=== PATIENT | female | born 1985 | race Caucasian/White ===

== ENCOUNTER → 2016-04-09 | Outpatient (CLI) | payer OTHER ==
[~2016-04-09] MED LIST: AMOX1TAB63 PO; ATOR10TA PO; AZIT250T PO; BENZ-13 PO; BUTA1CAP39 PO; CETI10CA PO; HYDR-2854 PO; L-NO1TBD PO; METF500T4 PO; PRD20T PO; RT-ALBUINH IH
--- NOTE | 2016-04-09 13:34 | Diagnostic Imaging Report ---
First trimester OB ultrasound. INDICATION: Dating. FINDINGS: There is a normal-appearing single intrauterine . An embryo is seen with cardiac activity at 172 beats per minute. The crown-rump length is at 12 weeks and 5 days. BATSHEVA is 10/17/16. The ovaries are obscured by bowel gas. IMPRESSION: Live single intrauterine . Dictated by: Dictated on workstation # [id number]
== END ==
LOC: RAD 09:35
PROVIDERS: ATTEND Family Medicine
DX: Z36 Encounter for antenatal screening of mother (principal); Z3A.12 12 weeks gestation of pregnancy
CPT/HCPCS: 76801

== ENCOUNTER 2016-04-16 14:37 | Emergency (ER) | payer OTHER ==
[~2016-04-16] VITALS: Ht 160 cm; Wt 108.0 kg
[~2016-04-16 14:37] MED LIST changes: -RT-ALBUINH IH
[2016-04-16] MEDS ORDERED: RT-ALBUINH IH (14:46)
[2016-04-16 14:58] LABS: BASOPHILS % (AUTO) 0 % (0-10); EOSINOPHILS # (AUTO) 0.1 10^3/uL (0.0-0.3); EOSINOPHILS % (AUTO) 1 % (0-10); LYMPHOCYTES # (AUTO) 2.2 X 10^3 (1.0-4.0); LYMPHOCYTES % (AUTO) 19 % (12-44); MEAN CORPUSCULAR HEMOGLOBIN 30 PG (25-34); MEAN CORPUSCULAR HGB CONC 35 G/DL (32-36); MEAN CORPUSCULAR VOLUME 86 FL (80-99); MEAN PLATELET VOLUME 10.2 FL (7.4-10.4); MONOCYTES # (AUTO) 0.9 X 10^3 (0.0-1.0); MONOCYTES % (AUTO) 8 % (0-12); NEUTROPHILS # (AUTO) 8.4 X 10^3 (1.8-7.8); NEUTROPHILS % (AUTO) 72 % (42-75); PLATELET COUNT 288 10^3/uL (130-400); RED BLOOD COUNT 4.61 10^6/uL (4.35-5.85); RED CELL DISTRIBUTION WIDTH 12.1 % (10.0-14.5); WHITE BLOOD COUNT 11.6 10^3/uL (4.3-11.0)
[2016-04-16 15:02] LABS: BILIRUBIN,URINE NEGATIVE (NEGATIVE); KETONES,URINE 2+ (NEGATIVE); LEUKOCYTE ESTERASE ,URINE NEGATIVE (NEGATIVE); NITRITE,URINE NEGATIVE (NEGATIVE); PH,URINE 5 (5-9); PROTEIN,URINE 4+ (NEGATIVE); UROBILINOGEN,URINE NORMAL (NORMAL)
[2016-04-16 15:15] LABS: SQUAMOUS EPITHELIAL CELL,UR RARE /HPF
--- NOTE | 2016-04-16 15:31 | ED GU-Female ---
General Chief Complaint: -Female Stated Complaint: VAG BLEEDING/CRAMPING 13 WKS PREG Nursing Triage Note: TO ROOM 09 VIA AMBULANCE. PT STARTED HAVING ABD CRAMPING AT [facility] AND NOTICED BLOOD IN THE TOILET. Nursing Sepsis Screen: No Definite Risk Source: patient Exam Limitations: no limitations History of Present Illness Time seen by provider: 14:40 Initial Comments This 31-year-old 6 para-4 presents to the emergency room with fairly sudden onset of lower back pain, pelvic cramping, and vaginal bleeding. She had been walking around a local store when symptoms started. She went to the bathroom and noticed the bleeding. She then activated EMS. She is about 13 weeks gestational age. She had a recent ultrasound demonstrating a viable . EMS reports blood loss was around 50 mL. She denies any pain at the time of my evaluation. She is a patient of Dr. Villa and has already had her pelvic exam at his office. Allergies and Home Medications Allergies Coded Allergies: No Known Drug Allergies (Verified , 04/11/08) Home Medications Albuterol Sulfate 6.7 Gm Hfa.aer.ad 2 PUFF IH Q6H PRN PRN SHORTNESS OF BREATH ( Reported) Constitutional: no symptoms reported EENTM: no symptoms reported Respiratory: no symptoms reported Cardiovascular: no symptoms reported Gastrointestinal: see HPI Genitourinary: see HPI Expected Date of Delivery: Oct 20, 2016 Musculoskeletal: see HPI Skin: no symptoms reported Psychiatric/Neurological: No Symptoms Reported Endocrine: No Symptoms Reported Past Deifxbe-Fqfydt-Vxylte Hx Patient Social History Alcohol Use: Rarely Uses Recreational Drug Use: No Smoking Status: Never a Smoker Recent Foreign Travel: No Contact w/Someone Who Travel: No Recent Infectious Disease Expo: No Recent Hopitalizations: No Surgeries HX Surgeries: Yes (oral surgery age 6) Respiratory Hx Respiratory Disorders: Yes Respiratory Disorders: Asthma Cardiovascular Hx Cardiac Disorders: Yes Cardiac Disorders: High Cholesterol Neurological Hx Neurological Disorders: No Reproductive System : Yes Hx : 6 Hx Para: 4 Hx Total # of Abortions (Spona: 1 Hx Reproductive Disorders: No Genitourinary Hx Genitourinary Disorders: No Gastrointestinal Hx Gastrointestinal Disorders: No Musculoskeletal Hx Musculoskeletal Disorders: No Endocrine Hx Endocrine Disorders: No HEENT HX ENT Disorders: No Cancer Hx Cancer: No Psychosocial Hx Psychiatric Problems: Yes Behavioral Health Disorders: Anxiety Blood Transfusions Hx Blood Disorders: No Family Medical History Significant Family History: No Pertinent Family Hx Physical Exam Vital Signs Vital Sign - Last 12Hours 04/16/16 14:41 Temp 96.5 Pulse 104 Resp 16 B/P 121/72 Pulse Ox 100 O2 Delivery Room Air Capillary Refill : Less Than 3 Seconds General Appearance: WD/WN no apparent distress HEENT: PERRL/EOMI normal ENT inspection pharynx normal Neck: normal inspection Cardiovascular: regular rate, rhythm no edema no murmur Respiratory: lungs clear normal breath sounds no respiratory distress no accessory muscle use Gastrointestinal: normal bowel sounds soft tenderness (mild across the lower abdomen) Back: normal inspection Extremities: normal inspection no pedal edema Neurologic/Psychiatric: network relay tester II-XII nml as tested no motor/sensory deficits alert normal mood/affect oriented x 3 Skin: normal color warm/dry Progress/Results/Core Measures Results/Orders Lab Results Laboratory Tests Test 04/16/16 14:45 04/16/16 14:55 Range/Units Basophils # (Auto) 0.0 0.0-0.1 10^3/uL Basophils (%) (Auto) 0 0-10 % Eosinophils # (Auto) 0.1 0.0-0.3 10^3/uL Eosinophils (%) (Auto) 1 0-10 % Hematocrit 40 35-52 % Hemoglobin 14.0 11.5-16.0 G/DL Human Chorionic Gonadotropin, Quant 15994 H <5 MIU/ML Lymphocytes # (Auto) 2.2 1.0-4.0 X 10^3 Lymphocytes (%) (Auto) 19 12-44 % Mean Corpuscular Hemoglobin 30 25-34 PG Mean Corpuscular Hemoglobin Concent 35 32-36 G/DL Mean Corpuscular Volume 86 80-99 FL Mean Platelet Volume 10.2 7.4-10.4 FL Monocytes # (Auto) 0.9 0.0-1.0 X 10^3 Monocytes (%) (Auto) 8 0-12 % Neutrophils # (Auto) 8.4 H 1.8-7.8 X 10^3 Neutrophils (%) (Auto) 72 42-75 % Platelet Count 288 130-400 10^3/uL Red Blood Count 4.61 4.35-5.85 10^6/uL Red Cell Distribution Width 12.1 10.0-14.5 % White Blood Count 11.6 H 4.3-11.0 10^3/uL Urine Bacteria TRACE /HPF Urine Bilirubin NEGATIVE NEGATIVE Urine Casts NONE /LPF Urine Clarity BLOODY H Urine Color RED H Urine Crystals NONE /LPF Urine Culture Indicated NO Urine Glucose (UA) NEGATIVE NEGATIVE Urine Ketones 2+ H NEGATIVE Urine Leukocyte Esterase NEGATIVE NEGATIVE Urine Mucus NEGATIVE /LPF Urine Nitrite NEGATIVE NEGATIVE Urine Protein 4+ NEGATIVE Urine RBC TNTC H /HPF Urine RBC (Auto) 5+ H NEGATIVE Urine Specific [place] 1.025 H 1.016-1.022 Urine Squamous Epithelial Cells RARE /HPF Urine Urobilinogen NORMAL NORMAL MG/DL Urine WBC NONE /HPF Urine pH 5 5-9 My Orders Orders-ANNIA YAÑEZ MD Cbc With Automated Diff (04/16/16 14:45) Hcg,Quantitative (04/16/16 14:45) Ua Culture If Indicated (04/16/16 14:45) Us Ob Single Fetus<14 [id number] (04/16/16 14:48) Vital Signs/I&O Vital Sign - Last 12Hours 04/16/16 14:41 Temp 96.5 Pulse 104 Resp 16 B/P 121/72 Pulse Ox 100 O2 Delivery Room Air Blood Pressure Mean: 88 Progress Note : Progress Note Ultrasound findings discussed with Dr. Villa and the patient. She will follow- up in the outpatient clinic. Activity restrictions discussed. Diagnostic Imaging Diagonstic Imaging: Ultrasound Plain Films/CT/US/NM/MRI: pelvis Comments Ultrasound discussed with the research instrumentation technician and radiologist. There is a subchorionic bleed with a viable . Departure Impression Impression: Primary Impression: Subchorionic bleed Qualified Code: O41.8X10 - Other specified disorders of amniotic fluid and membranes, first trimester, not applicable or unspecified Additional Impression: Vaginal bleeding in Qualified Code: O46.91 - Antepartum hemorrhage, unspecified, first trimester Disposition: 01 HOME, SELF-CARE Condition: Stable Departure-Patient Inst. Decision time for Depature: 15:45 Referrals: ANA WILSON DO (PCP/Family) Primary Care Physician Patient Instructions: NO INSTRUCTIONS GIVEN Add. Discharge Instructions: No strenuous activity or heavy lifting until cleared by your physician. No sexual activity or anything intravaginally until cleared by your physician. Return to care if symptoms worsen. Follow-up with Dr. Villa within the next1-2 weeks. All discharge instructions reviewed with patient and/or family. Voiced understanding. ANNIA YAÑEZ MD Apr 16, 2016 15:31
--- NOTE | 2016-04-16 15:55 | Diagnostic Imaging Report ---
EXAMINATION: OB ultrasound. INDICATION: Bleeding. FINDINGS: The recent OB ultrasound exam performed on 04/09/2016 noted a single live intrauterine of approximately 12 weeks 5 days, +/-1 week. On this exam, the fetus is again visualized. heart motion was noted, and a rate of 156 BPM was recorded. The crown-rump length suggests that estimated gestational age is 13 weeks 4 days, +/-1 week. This would correspond to the findings on the previous exam. There are no obvious abnormalities identified. The amniotic fluid volume is within normal limits. The placenta is anterior, and there is a small hypoechoic area interposed between the placenta and the myometrium. This may be related to a subchorionic hemorrhage. There is no active bleeding evident, and there is no sign of an abruption. There is no evidence for a previa either. IMPRESSION: 1. There is a single live fetus of approximately 13 weeks 5 days gestation, +/-1 week. The EDC remains October 17, 2016. 2. No obvious abnormality is identified. 3. The small fluid collection interposed between the placenta and the myometrium may be related to a subchronic hemorrhage. There is no evidence for active bleeding. There is no sign of an abruption or previa either. 4. These results were discussed with Dr. Almas Villa and Dr. Ulysses Eldridge. Dictated by: Dictated on workstation # [id number]
[2016-04-16 15:56] VITALS: BP 131/85
== END 2016-04-16 15:56 | disposition home or self-care (01) ==
LOC: EDUNIT# 14:37 → ER 14:39
DX: O41.8X10 Other specified disorders of amniotic fluid and membranes, first trimester, not applicable or unspecified (principal); Z3A.13 13 weeks gestation of pregnancy
CPT/HCPCS: 36415; 76801; 81000; 84702; 85025

== ENCOUNTER → 2016-06-04 | Outpatient (CLI) | payer OTHER ==
[~2016-06-04] MED LIST changes: +RT-ALBUINH IH
--- NOTE | 2016-06-04 13:48 | Diagnostic Imaging Report ---
INDICATION: survey. COMPARISON: 04/16/2016. DISCUSSION: Transabdominal sonographic evaluation of the gravid uterus was performed. Single live intrauterine at 20 weeks 6 days by sonographic measurements. Appropriate interval growth. EDC by today's ultrasound is 10/16/2016. presentation is transverse. Grade 1 placenta is located posteriorly and is low lying in position. heart rate measures 143 beats per minute. There was poor visualization of the bladder and cord insertion due to positioning. There is good visualization of the kidneys, stomach, brain, four-chamber heart, three-vessel cord, spine, and extremities. Recommend short-term sonographic followup. Biparietal diameter measures 4.7 cm. Head circumference measures 17.6 cm. Abdominal circumference measures 16.4 cm. Femur length measures 3.5 cm. Estimated weight is 399 g. IMPRESSION: 1. Single live intrauterine at 20 weeks 6 days by sonographic measurements. 2. Poor visualization of the bladder and cord insertion due to positioning. Recommend short-term sonographic followup. The remainder of the anatomical survey appeared within normal limits. 3. Low-lying placenta. Dictated by: Dictated on workstation # [id number]
== END ==
LOC: RAD 09:21
PROVIDERS: ATTEND Family Medicine
DX: Z36 Encounter for antenatal screening of mother (principal)
CPT/HCPCS: 76805

== ENCOUNTER → 2016-06-25 | Outpatient (CLI) | payer OTHER ==
--- NOTE | 2016-06-25 12:18 | Diagnostic Imaging Report ---
EXAMINATION: OB ultrasound. INDICATION: Incomplete survey. Reevaluate the bladder and cord insertion. FINDINGS: The heart rate is 134 BPM. The placenta is posterior. No placenta previa. The urinary bladder and cord insertion are better seen compared to the prior exam with no definite abnormality. IMPRESSION: Completed survey with no definite abnormality. Dictated by: Dictated on workstation # [id number]
== END ==
LOC: RAD 10:56
PROVIDERS: ATTEND Family Medicine
DX: Z36 Encounter for antenatal screening of mother (principal)
CPT/HCPCS: 76816

== ENCOUNTER 2016-10-09 14:12 | Outpatient (CLI) | payer OTHER, MEDICAID ==
[~2016-10-09] VITALS: Ht 160 cm; Wt 107.5 kg
[2016-10-09 14:30] VITALS: BP 123/71
[2016-10-09] MEDS ORDERED: PREN-37 PO (15:42)
--- NOTE | 2016-10-12 11:13 | Physician Query-Final Dx ---
FRANDY JANE 10/12/16 1113: Clinic Account Progress/Dx Physician Query: Please give diagnosis Date of Service Oct 09, 2016 at 14:12 MARY GRANT MD 11/02/16 1315: Clinic Account Progress/Dx DIAGNOSIS: Diagnosis Abdominal pain FRANDY JANE Oct 12, 2016 11:13 MARY GRANT MD Nov 02, 2016 13:15
[2016-10-20] MEDS ORDERED: IBUP-1773 PO (08:01)
== END 2016-10-09 15:50 | disposition home or self-care (01) ==
LOC: WSo 14:12 → LDRP 14:13 → WSo 15:50
PROVIDERS: ATTEND Family Medicine
DX: O26.90 Pregnancy related conditions, unspecified, unspecified trimester (principal); R10.9 Unspecified abdominal pain
CPT/HCPCS: 99213

== ENCOUNTER 2016-10-19 05:37 | Inpatient (IN) | payer OTHER, MEDICAID ==
[~2016-10-19] VITALS: Ht 160 cm; Wt 107.7 kg
[2016-10-19] VITALS (33 sets, daily range): BP systolic 93–134; BP diastolic 50–82
[~2016-10-19 05:37] MED LIST changes: +PREN-37 PO
[2016-10-19] MEDS ORDERED: MINERAL OIL CONCENTRATE 99.9% 15 ML UDC TOP PRN (06:00)
[2016-10-19] MEDS ORDERED: CATHETER FLUSH 10 ML SYR IV SCH ×2 (06:00→22:00)
[2016-10-19] MEDS: D5 LR IV SOLUTION 1,000 ML IV SCH ×2 (06:10→13:03)
[2016-10-19 06:32] LABS: BASOPHILS % (AUTO) 0 % (0-10); EOSINOPHILS # (AUTO) 0.2 10^3/uL (0.0-0.3); EOSINOPHILS % (AUTO) 2 % (0-10); LYMPHOCYTES # (AUTO) 1.5 X 10^3 (1.0-4.0); LYMPHOCYTES % (AUTO) 15 % (12-44); MEAN CORPUSCULAR HEMOGLOBIN 26 PG (25-34); MEAN CORPUSCULAR HGB CONC 33 G/DL (32-36); MEAN CORPUSCULAR VOLUME 80 FL (80-99); MEAN PLATELET VOLUME 10.9 FL (7.4-10.4); MONOCYTES # (AUTO) 1.1 X 10^3 (0.0-1.0); MONOCYTES % (AUTO) 11 % (0-12); NEUTROPHILS # (AUTO) 7.4 X 10^3 (1.8-7.8); NEUTROPHILS % (AUTO) 73 % (42-75); PLATELET COUNT 296 10^3/uL (130-400); RED BLOOD COUNT 4.59 10^6/uL (4.35-5.85); RED CELL DISTRIBUTION WIDTH 14.1 % (10.0-14.5); WHITE BLOOD COUNT 10.2 10^3/uL (4.3-11.0)
[2016-10-19] MEDS ORDERED: OXYTOCIN/NORMAL SALINE 500 ML IV SCH ×2 (07:34→15:25)
--- NOTE | 2016-10-19 07:34 | History & Physical-OB ---
OB - Chief Complaint & HPI Date/Time Date of Admission: Date of Admission: Oct 19, 2016 at 05:37 Time Seen by Provider: 07:20 Chief Complaint/History Hx : 5 Hx Para: 4 Expected Date of Delivery: Oct 20, 2016 Gestational Age in Weeks: 39 Gestational Age in Days: 6 Admission Nurse Assessment Rev: Yes History of Labs GBS negative Allergies and Home Medications Allergies Coded Allergies: No Known Drug Allergies (Verified , 04/11/08) Home Medications Albuterol Sulfate 6.7 Gm Hfa.aer.ad, 2 PUFF IH Q6H PRN for SHORTNESS OF BREATH, (Reported) Vit/Iron Fumarate/FA 1 Each Tablet, 1 EACH PO DAILY, (Reported) OB - History Hx of Present Care: Yes Ultrasounds: Normal mid trimester US Obstetrical Complications: None Medical Complications: None Obstetrical History Hx Termination: No Hx Multiple Gestation: No Hx Stillbirth: No Hx Complication: No Hx Induced Hypertens: No Hx Maternal Gestational Diabet: No Delivery History Hx Dystocia: No Hx Large For Gestational Age I: Yes Hx Small for Gestational Age I: No Hx Section: No Hx Vaginal Delivery Post C-Sec: No Hx Blood Disorders: No Adverse Rxn to Tranfusion: No Patient Past Medical History no chronic medical problems Social History/Family History Recent Infectious Disease Expo: No Alcohol Use: Denies Use Recreational Drug Use: No Immunizations Hepatitis A: Yes Hepatitis B: Yes OB - Admission Exam Physical Exam Date Seen by Provider: Oct 19, 2016 Time Seen by Provider: 07:20 Vitals: Vital Signs 10/19/16 06:02 Temp 97.9 Pulse 105 Resp 18 B/P (MAP) 133/60 O2 Delivery Room Air HEENT: Moist Membranes Heart: Rhythm Normal Lungs: Clear Abdomen: Gravid Cervical Dilatation: 3cm Effacement: 50% Station: -3 Membranes: Intact Heart Rate: 140's Accelerations: Accelerations Present Decelerations: No Decelerations Short Term Variability: Present Mcfp Variability: Average (6-25) Contractions on Admission: >10 Minutes Apart Wolfe Scoring Tool (Modified) Dilation (cm): 3-4cm (2) Effacement (%): 31-51% (1) Descent/Station: -3 (0) Cervix Consistency: Medium(1) Cervix Position: Middle/Mid-Position (1) Wolfe Score: 9 Labs Laboratory Tests Test 10/19/16 06:10 Range/Units White Blood Count 10.2 4.3-11.0 10^3/uL Red Blood Count 4.59 4.35-5.85 10^6/uL Hemoglobin 11.9 11.5-16.0 G/DL Hematocrit 37 35-52 % Mean Corpuscular Volume 80 80-99 FL Mean Corpuscular Hemoglobin 26 25-34 PG Mean Corpuscular Hemoglobin Concent 33 32-36 G/DL Red Cell Distribution Width 14.1 10.0-14.5 % Platelet Count 296 130-400 10^3/uL Mean Platelet Volume 10.9 H 7.4-10.4 FL Neutrophils (%) (Auto) 73 42-75 % Lymphocytes (%) (Auto) 15 12-44 % Monocytes (%) (Auto) 11 0-12 % Eosinophils (%) (Auto) 2 0-10 % Basophils (%) (Auto) 0 0-10 % Neutrophils # (Auto) 7.4 1.8-7.8 X 10^3 Lymphocytes # (Auto) 1.5 1.0-4.0 X 10^3 Monocytes # (Auto) 1.1 H 0.0-1.0 X 10^3 Eosinophils # (Auto) 0.2 0.0-0.3 10^3/uL Basophils # (Auto) 0.0 0.0-0.1 10^3/uL OB - Assessment/Plan/Diagnosis Assessment Assessment: induction of labor (at 39w6d gestation) Plan Induction Method: per Pitocin Protocol DINORA CARRION MD Oct 19, 2016 07:34
[2016-10-19 07:40] LABS: BILIRUBIN,URINE NEGATIVE (NEGATIVE); KETONES,URINE NEGATIVE (NEGATIVE); LEUKOCYTE ESTERASE ,URINE 3+ (NEGATIVE); NITRITE,URINE NEGATIVE (NEGATIVE); PH,URINE 7 (5-9); PROTEIN,URINE NEGATIVE (NEGATIVE); UROBILINOGEN,URINE NORMAL (NORMAL)
[2016-10-19] MEDS ORDERED: BUTORPHANOL INJ 2 MG/ML (STADOL) VIAL IV PRN (07:45)
[2016-10-19] MEDS ORDERED: MEPIVACAINE (CARBOCAINE) 2% 50 ML VIAL ONE ×2 (11:37→13:20)
--- OUTSIDE RECORDS SUMMARY | 2016-10-19 12:41 | XMS REPORT ---
Author RICH Yeager Organization [employer] Address Unknown Phone Unavailable Care Team Providers Care Machine Coil Assembler Name Role Phone RICH HANKS CP Unavailable Allergies, Adverse Reactions, Alerts Substance Reaction Event Type N.K.D.A. Info Not Available Non Drug Allergy Problems Problem Type Condition Code Onset Dates Condition Status Problem Adjustment disorder with anxiety 309.24 Active Assessment Sinusitis J32.9 Active Problem Sinusitis J32.9 Active Medications Medication Code System Code Instructions Start Date End Date Status Dosage Amoxicillin [facility] [address]-10 500 MG Orally 3 times a day Dec 17, 2014 Dec 27, 2014 1 tablet PredniSONE [facility] [address]-54 10 MG Orally 2 times a day Dec 17, 2014 Dec 22, 2014 1 tablet with food or milk Seasonique [facility] [address]-07 0.15 mg-30 mcg (84)/10 mcg (7) Orally Once a day August 24, 2013 take 1 tablet by oral route once daily Procedures Procedure Coding System Code Date Office Visit, Est Pt., Level 3 CPT-4 48046 Dec 17, 2014 Vital Signs Date/Time: Dec 17, 2014 Temperature 97.8 F Weight 240.1 lbs Height 63 in BMI 42.53 Index Blood Pressure Diastolic 74 mmHg Blood Pressure Systolic 120 mmHg Cardiac Monitoring Heart Rate 84 bpm Results No Known Results Summary Purpose [employer] Submission
--- OUTSIDE RECORDS SUMMARY | 2016-10-19 12:41 | XMS REPORT ---
Author RICH Yeager [facility] [employer] Address Unknown Phone Unavailable Care Team Providers Care Vallez Filter Operator Name Role Phone RICH HANKS Unavailable Allergies No Known Allergies Problems Problem Type Condition Code Onset Dates Condition Status Problem Asthma J45.909 Active Problem Sinusitis J32.9 Active Problem Wellness examination Z01.89 Active Problem Adjustment disorder with anxiety 309.24 Active Assessment Hyperlipemia E78.5 Active Medications Medication Code System Code Instructions Start Date End Date Status Dosage Atorvastatin Calcium [facility] [address]-84 20 MG Orally Once a day Dec 27, 2014 1 tablet Results No Known Results Summary Purpose [employer] Submission
--- OUTSIDE RECORDS SUMMARY | 2016-10-19 12:41 | XMS REPORT ---
Author RICH Yeager Organization [employer] Address Unknown Phone Unavailable Care Team Providers Care Drafter Automotive Design Layout Name Role Phone RICH HANKS CP Unavailable Allergies, Adverse Reactions, Alerts Substance Reaction Event Type N.K.D.A. Info Not Available Non Drug Allergy Problems Problem Type Condition Code Onset Dates Condition Status Problem Asthma J45.909 Active Problem Sinusitis J32.9 Active Problem Wellness examination Z01.89 Active Assessment Asthma J45.909 Active Problem Adjustment disorder with anxiety 309.24 Active Assessment Allergic headache G44.89 Active Medications Medication Code System Code Instructions Start Date End Date Status Dosage Atorvastatin Calcium [facility] [address]-79 20 MG Orally Once a day Dec 27, 2014 1 tablet Seasonique [facility] [address]-75 0.15 mg-30 mcg (84)/10 mcg (7) Orally Once a day August 24, 2013 take 1 tablet by oral route once daily Albuterol Sulfate HFA [facility] [address]-36 108 (90 Base) MCG/ACT Inhalation every 4 hrs Dec 26, 2014 2 puffs as needed Excedrin Migraine [facility] [address]-55 250-250-65 MG Orally every 6 hrs Jan 2 tablets as needed Procedures Procedure Coding System Code Date DEXAMETHASONE 4MG/ML (PER 1 MG) CPT-4 J1100 Feb 07, 2015 THER/PROPH/DIAG INJ, SC/IM CPT-4 94133 Feb 07, 2015 Office Visit, Est Pt., Level 4 CPT-4 84326 Feb 07, 2015 DEPO MEDROL 40 MG/ML CPT-4 J1030 Feb 07, 2015 Vital Signs Date/Time: Feb 07, 2015 Temperature 97.3 F Weight 241.3 lbs Height 63 in BMI 42.74 Index Blood Pressure Diastolic 88 mmHg Blood Pressure Systolic 118 mmHg Cardiac Monitoring Heart Rate 100 bpm Results No Known Results Summary Purpose [employer] Submission
--- OUTSIDE RECORDS SUMMARY | 2016-10-19 12:42 | XMS REPORT ---
Author RICH Yeager Organization [employer] Address Unknown Phone Unavailable Care Team Providers Care Machine Tool Electrician Name Role Phone RICH HANKS CP Unavailable Allergies No Known Allergies Problems Problem Type Condition Code Onset Dates Condition Status Problem Obesity E66.9 Active Problem Wellness examination Z01.89 Active Problem Hypercholesteremia E78.0 Active Problem Adjustment disorder with anxiety 309.24 Active Problem Asthma J45.909 Active Problem Sinusitis J32.9 Active Medications Medication Code System Code Instructions Start Date End Date Status Dosage Metformin HCl [facility] [address]-11 500 MG Orally 2 times a day 1 tablet with meals Results No Known Results Summary Purpose [employer] Submission
--- OUTSIDE RECORDS SUMMARY | 2016-10-19 12:42 | XMS REPORT ---
Author RICH Yeager Organization [employer] Address Unknown Phone Unavailable Care Team Providers Care Employee Welfare Manager Name Role Phone RICH HANKS CP Unavailable Allergies, Adverse Reactions, Alerts Substance Reaction Event Type N.K.D.A. Info Not Available Non Drug Allergy Problems Problem Type Condition Code Onset Dates Condition Status Problem Asthma J45.909 Active Problem Sinusitis J32.9 Active Problem Wellness examination Z01.89 Active Assessment Asthma J45.909 Active Problem Adjustment disorder with anxiety 309.24 Active Assessment Wellness examination Z01.89 Active Medications Medication Code System Code Instructions Start Date End Date Status Dosage Albuterol Sulfate HFA [facility] [address]-75 108 (90 Base) MCG/ACT Inhalation every 4 hrs Dec 26, 2014 2 puffs as needed Seasonique [facility] [address]-37 0.15 mg-30 mcg (84)/10 mcg (7) Orally Once a day August 24, 2013 take 1 tablet by oral route once daily Procedures Procedure Coding System Code Date COMPREHEN METABOLIC PANEL CPT-4 11711 Dec 26, 2014 ASSAY THYROID STIM HORMONE CPT-4 67006 Dec 26, 2014 COMPLETE CBC W/AUTO DIFF WBC CPT-4 65118 Dec 26, 2014 VENIPUNCT, ROUTINE* CPT-4 47912 Dec 26, 2014 LIPID PANEL CPT-4 84652 Dec 26, 2014 Office Visit, Est Pt., Level 4 CPT-4 01956 Dec 26, 2014 Vital Signs Date/Time: Dec 26, 2014 Temperature 98.0 F Weight 242 lbs Height 63 in BMI 42.86 Index Blood Pressure Diastolic 70 mmHg Blood Pressure Systolic 118 mmHg Cardiac Monitoring Heart Rate 88 bpm Results Name Result Date Reference Range Unit Abnormality Flag ROUTINE VENIPUNCTURE TSH Summary Purpose e[employer] Submission
--- NOTE | 2016-10-19 15:29 | OB Labor & Delivery Record ---
L&D History Date of Service Date of Service: Oct 19, 2016 History Expected Date of Delivery: Oct 20, 2016 Gestational Age in Weeks: 39 Hx : 5 Hx Para: 4 Complications Events: Routine care Operative Indications (Cesarea: N/A-Vaginal Delivery Intrapartal Events: None L&D Stage1 Stage One Onset of Labor - Date: Oct 19, 2016 Onset of Labor - Time: 07:15 Monitors and Tracing Monitor Mode: Internal Heart Rate: 145 Monitor Accelerations: Uniform Monitor Decelerations: Variable Station: -3 Hot Plate Plywood Press Operator Variability: Average (6-10) Short Term Variability: Present Presentation: Vertex Vital Signs VS - Last 72 Hours, by Label 10/19/16 10/19/16 10/19/16 10/19/16 06:02 07:30 08:00 08:15 Temp 97.9 97.2 Pulse 105 91 93 Resp 18 20 20 20 B/P (MAP) 133/60 132/63 124/63 O2 Delivery Room Air Non Rebreather Room Air Room Air O2 Flow Rate 15.00 10/19/16 10/19/16 10/19/16 10/19/16 08:30 08:45 09:00 09:15 Pulse 94 92 91 91 Resp 20 20 20 20 B/P (MAP) 134/69 123/58 115/58 102/61 O2 Delivery Room Air Room Air Room Air Room Air 10/19/16 09:30 Pulse 90 Resp 20 B/P (MAP) 126/60 O2 Delivery Room Air Signs of Distress by FHT Signs of Distress no Rupture of Membranes Spontaneous Ruture of Membrane: No Amniotic Membrane Rupture Time: 0720 Amniotic Membrane Fluid Desc.: Clear L&D Stage2 Stage Two Stage II Date: Oct 19, 2016 Stage II Time: 13:50 Monitors and Tracing Monitor Mode: Internal Heart Rate: 145 Monitor Accelerations: Uniform Monitor Decelerations: Variable Hot Plate Plywood Press Operator Variability: Average (6-10) Short Term Variability: Present Position: Left Occiput Anterior Presentation: Vertex Signs of Distress by FHT Signs of Distress no Cord Descript/Complications Cord Vessel Description: 3 Vessels Delivery Type Delivery Method: Spontaneous Vaginal Anterior Shoulder: Left Episiotomy/Perineal Laceration Episiotomy Description: Perineal Extension/lac, 1st degree Sutures Used: Vicryl Condition of Infant Delivery 1 minute Comment: 9 5 minute Comment: 9 Condition of Condition of Infant: Living Exam: No Observed Abnormalities Resuscitation Resuscitation: N/A - Spontaneous Resp L&D Stage3 Stage Three Stage III Date: Oct 19, 2016 Stage III Time: 13:54 Pictocin Pitocin Administration mu/min: 6 Pitocin ml/hr: 6 Pitocin Administration Comment: PITOCIN STARTED PER PROTOCOL. Placenta Delivery Placenta Delivery: Spontaneous Delivery Summary Summary Vaginal blood loss >500ml: No 250 Condition of Delivery Examined: Cervix Examined Post Hemorrhage: No DINORA CARRION MD Oct 19, 2016 15:29
[2016-10-19] MEDS ORDERED: BENZOCAINE/MENTHOL (DERMOPLAST) 56 ML CAN TP PRN (15:30)
[2016-10-19] MEDS ORDERED: HYDROcodone/APAP 5 MG/325 MG (LORTAB) TAB PO PRN (15:30)
[2016-10-19] MEDS ORDERED: TETANUS,DIPTH,PERTUSS P/F (BOOSTRIX) 0.5 ML VIAL IM ONE (15:30)
[2016-10-19] MEDS ORDERED: MEASLES,MUMPS,RUBELLA 1 EA INJ SQ ONE (15:30)
[2016-10-19] MEDS ORDERED: WITCH HAZEL(TUCKS) 40 EA JAR TOP PRN (15:30)
[2016-10-19] MEDS: IBUPROFEN 600 MG (MOTRIN) TAB PO SCH ×2 (15:40→22:31)
[2016-10-19] MEDS ORDERED: MEPIVACAINE (CARBOCAINE) 2% 20 ML VIAL INJ ONE (16:00)
[2016-10-20 00:10] VITALS: BP 93/63
[2016-10-20 04:48] VITALS: BP 103/65
[2016-10-20] MEDS: IBUPROFEN 600 MG (MOTRIN) TAB PO SCH ×3 (04:48→16:10)
[2016-10-20 06:45] LABS: BASOPHILS % (AUTO) 0 % (0-10); EOSINOPHILS # (AUTO) 0.2 10^3/uL (0.0-0.3); EOSINOPHILS % (AUTO) 1 % (0-10); LYMPHOCYTES % (AUTO) 15 % (12-44); MEAN CORPUSCULAR HEMOGLOBIN 26 PG (25-34); MEAN CORPUSCULAR HGB CONC 32 G/DL (32-36); MEAN CORPUSCULAR VOLUME 80 FL (80-99); MEAN PLATELET VOLUME 10.6 FL (7.4-10.4); MONOCYTES # (AUTO) 1.3 X 10^3 (0.0-1.0); MONOCYTES % (AUTO) 10 % (0-12); NEUTROPHILS % (AUTO) 74 % (42-75); PLATELET COUNT 307 10^3/uL (130-400); WHITE BLOOD COUNT 13.4 10^3/uL (4.3-11.0)
--- NOTE | 2016-10-20 08:00 | Discharge Summary ---
Diagnosis/Chief Complaint Date of Admission Oct 19, 2016 at 05:37 Date of Discharge October 20, 2016 Admission Diagnosis Admission Diagnosis 1. Intrauterine at term 39 weeks gestation Discharge Diagnosis 1. Intrauterine at term 39 weeks gestation Chief Complaint/HPI Chief Complaint/HPI 31-year-old 5 now term 5 white female who presents to labor and delivery during the morning of October 19, 2016 for induction of labor. Patient was noted to be at 39 weeks 6 days gestation. Her EDC is October 20, 2016. Her care was essentially unremarkable and performed at [facility]. Upon presentation is dilated to 3 cm. Discharge Summary-OBS Procedures 1. Spontaneous vaginal delivery 2. Repair of first degree perineal laceration Discharge Physical Examination Allergies: Coded Allergies: No Known Drug Allergies (Verified , 04/11/08) Vitals & I&Os Vital Sign - Last 12Hours Date Time Temp Pulse Resp B/P (MAP) Pulse Ox O2 Delivery O2 Flow Rate FiO2 10/20/16 04:48 97.6 81 18 103/65 99 Room Air 10/19/16 13:45 15.00 General Appearance: No Acute Distress Respiratory: Clear to Auscultation Cardiovascular: Regular Rate Abdominal: Soft (with uterus firm) Hospital Course following admission patient underwent routine antepartum care orders. She did not request epidural. She required low-dose Pitocin augmentation. She eventually went on to completion and delivered a term viable female with Apgars of 9 at 1 minute and 9 at 5 minutes. The 's weight was noted be 9 lbs. 2 oz. Mother had a natural first degree perineal laceration which was repaired with 3-0 Vicryl. See OB summary for full details. Following delivery she underwent routine care orders. She had no complications during the remainder of hospital stay. Her hemoglobin the morning after delivery was 11.3 compared to admission hemoglobin of 11.9. Patient was felt ready for dismissal during the afternoon of October 20, 2016. She will follow up in 6 weeks at [facility]. Labs Laboratory Tests 10/20/16 06:33: White Blood Count 13.4H, Red Blood Count 4.40, Hemoglobin 11.3L, Hematocrit 35, Mean Corpuscular Volume 80, Mean Corpuscular Hemoglobin 26, Mean Corpuscular Hemoglobin Concent 32, Red Cell Distribution Width 14.0, Platelet Count 307, Mean Platelet Volume 10.6H, Neutrophils (%) (Auto) 74, Lymphocytes (%) (Auto) 15 , Monocytes (%) (Auto) 10, Eosinophils (%) (Auto) 1, Basophils (%) (Auto) 0, Neutrophils # (Auto) 10.0H, Lymphocytes # (Auto) 2.0, Monocytes # (Auto) 1.3H, Eosinophils # (Auto) 0.2, Basophils # (Auto) 0.0 Discharge Instructions to patient/family Please see electonic discharge instructions given to patient. Discharge Medications Reviewed and agree with Discharge Medication list on patient's Discharge Instruction sheet Clinical Quality Measures DVT/VTE Risk/Contraindication: Risk Factor Score Per Nursin RFS Level Per Nursing on Admit: 2=Moderate DINORA CARRION MD Oct 20, 2016 08:00
[2016-10-20] MEDS ORDERED: IBUP-1773 PO (08:01)
--- NOTE | 2016-10-20 08:02 | Discharge Inst-Women's Service ---
Discharge Inst-Women's Serv Depart Medication/Instructions New, Converted or Re-Newed RX: RX on Chart Consults/Follow Up Additional Follow Up: Yes (with Dr Villa at [facility] in 6 weeks.) Activity Activity: Activity as Tolerated Driving Instructions: You May Drive Nothing Inside Vagina: No [place] (for 6 weeks) Diet Discharge Diet: Regular Diet Return to The Hospital For: as below Symptoms to Report to : Bleeding Excessive, Pain Increased, Fever Over 101 Degrees F, Vaginal Discharge DINORA Das MD Oct 20, 2016 08:02
--- NOTE | 2016-10-20 08:04 | Discharge Inst-Women's Service ---
Discharge Inst-Women's Serv Depart Medication/Instructions New, Converted or Re-Newed RX: RX on Chart Consults/Follow Up Additional Follow Up: Yes (with in [facility] weeks at [facility]) Activity Activity: Activity as Tolerated Driving Instructions: You May Drive Nothing Inside Vagina: No [place] (for 6 weeks) Diet Discharge Diet: Regular Diet Return to The Hospital For: as below Symptoms to Report to : Bleeding Excessive, Pain Increased, Fever Over 101 Degrees F, Vaginal Discharge Foul For Any Problems or Questions: Contact Your Physician DINORA CARRION MD Oct 20, 2016 08:04
[2016-10-20 08:14] VITALS: BP 108/73
== END 2016-10-20 16:20 | disposition home or self-care (01) | DRG 775 ==
LOC: LDRP 05:37 → 3RD 15:41 → LDRP 15:41
PROVIDERS: ADMIT Family Medicine; ATTEND Family Medicine
PROC: 10E0XZZ Delivery of Products of Conception, External Approach (ICD-10-PCS; principal; 2016-10-19)
PROC: 0HQ9XZZ Repair Perineum Skin, External Approach (ICD-10-PCS; 2016-10-19)
DX: O70.0 First degree perineal laceration during delivery (principal); Z37.0 Single live birth; Z3A.39 39 weeks gestation of pregnancy
CPT/HCPCS: 36415; 81000; 85025; 86850; 86900; 86901; 87088

== ENCOUNTER 2018-01-20 12:56 | Emergency (ER) | payer MEDICAID, OTHER ==
[~2018-01-20] VITALS: Ht 160 cm; Wt 104.3 kg
[~2018-01-20 12:56] MED LIST changes: -BENZ-13 PO; +BENZ100C18 PO; +IBUP-1773 PO; +METF-397 PO; -METF500T4 PO
[2018-01-20] MEDS ORDERED: PROMETHAZINE INJ 25 MG/ML (PHENERGAN) AMP IM ONE (13:45)
[2018-01-20] MEDS ORDERED: KETOROLAC 30 MG/ML VIAL IM ONE (13:45)
--- NOTE | 2018-01-20 13:50 | ED Headache ---
General Chief Complaint: Head/Cervical Problems Stated Complaint: HEADACHE Nursing Triage Note: pt presents to er with complaint of headache since wednesday. states she tried taking tylenol and ibuprofen but did not relieve her symptoms. states she also has had diarrhea, nausea, cough, and runny nose. Nursing Sepsis Screen: No Definite Risk Source: patient Exam Limitations: no limitations History of Present Illness Date Seen by Provider: Jan 20, 2018 Time Seen by Provider: 13:23 Initial Comments This 32-year-old young lady presents to the emergency room with migraine headache for the past 3 days. She states it is becoming very difficult to take care of her children. She took Tylenol and ibuprofen 2 days ago but did not continue these medications because they were not helpful. She has had some aura around lights and light sensitivity. She has been nauseated without vomiting. She does have a history of prior migraines. She denies as she has had a tubal ligation and last menstrual period was earlier this month. Allergies and Home Medications Allergies Coded Allergies: No Known Drug Allergies (Verified , 04/11/08) Home Medications Albuterol Sulfate 6.7 Gm Hfa.aer.ad, 2 PUFF IH Q6H PRN for SHORTNESS OF BREATH, (Reported) Ibuprofen 600 Mg Tablet, 600 MG PO Q6H Prescribed by: DINORA CARRION on 10/20/16 0801 Vit/Iron Fumarate/FA 1 Each Tablet, 1 EACH PO DAILY, (Reported) Promethazine HCl 25 Mg Tablet, 25 MG PO Q6H PRN for NAUSEA/VOMITING Prescribed by: ANNIA ALEXANDER on 01/20/18 1352 Patient Home Medication List Home Medication List Reviewed: Yes Review of Systems Review of Systems Constitutional: no symptoms reported Eyes: See HPI Ears, Nose, Mouth, Throat: no symptoms reported Respiratory: no symptoms reported Cardiovascular: no symptoms reported Gastrointestinal: see HPI Genitourinary: no symptoms reported : No Musculoskeletal: no symptoms reported Skin: no symptoms reported Psychiatric/Neurological: See HPI Past Yqvijiy-Toaiad-Htjoev Hx Past Med/Social Hx: Reviewed and Corrections made Patient Social History Alcohol Use: Denies Use Recreational Drug Use: No Smoking Status: Never a Smoker Recent Foreign Travel: No Contact w/Someone Who Travel: No Recent Infectious Disease Expo: No Recent Hopitalizations: No Immunizations Up To Date Tetanus Booster (TDap): Unknown PED Vaccines UTD: Yes Seasonal Allergies Seasonal Allergies: Yes Past Medical History Surgeries: Yes (DENTAL AT THE AGE OF 6) Tubal Ligation Respiratory: Yes Asthma Currently Using CPAP: No Currently Using BIPAP: No Cardiac: Yes High Cholesterol Neurological: Yes Headaches /Migraines Reproductive Disorders: No Female Reproductive Disorders: Denies Genitourinary: No Gastrointestinal: No Musculoskeletal: Yes Scoliosis Endocrine: No HEENT: No Cancer: No Psychosocial: Yes Anxiety Integumentary: No Blood Disorders: No Adverse Reaction/Blood Tranf: No Family Medical History Diabetes mellitus 19 MOTHER FH: testicular cancer 19 FATHER Hypercholesterolemia 19 MOTHER Hypertension 19 MOTHER No Pertinent Family Hx Physical Exam Vital Signs Vital Signs - First Documented 01/20/18 13:20 Temp 99.4 Pulse 85 Resp 18 B/P (MAP) 126/68 (87) Pulse Ox 95 O2 Delivery Room Air Capillary Refill : Less Than 3 Seconds Height, Weight, BMI Height: 5'3.00" Weight: 230lbs. 6.0oz. [id number]; 42.1 BMI Method:Stated General Appearance: WD/WN, no apparent distress HEENT: PERRL/EOMI, normal ENT inspection Neck: normal inspection Cardiovascular: regular rate, rhythm, no edema, no murmur Respiratory: lungs clear, normal breath sounds, no respiratory distress, no accessory muscle use Extremities: normal inspection, no pedal edema Psychiatric: alert, oriented x 3 Crainal Nerves: normal hearing, normal speech, PERRL Motor/Sensory: no motor deficit, no sensory deficit Skin: normal color, warm/dry Progress/Results/Core Measures Results/Orders My Orders Orders - ANNIA YAÑEZ MD Promethazine Injection (Phenergan Injec (01/20/18 13:45) Ketorolac Injection (Toradol Injection) (01/20/18 13:45) Prednisone Tablet (Deltasone Tablet) (01/20/18 14:00) Medications Given in ED Current Medications Medications Dose Ordered Sig/Betty Route Start Time Stop Time Status Last Admin Dose Admin Ketorolac Tromethamine 30 mg ONCE ONCE IM 01/20/18 13:45 01/20/18 13:46 DC 01/20/18 13:49 30 MG Prednisone 40 mg ONCE ONCE PO 01/20/18 14:00 01/20/18 14:01 DC 11/29/18 14:17 40 MG Promethazine HCl 25 mg ONCE ONCE IM 01/20/18 13:45 01/20/18 13:46 DC 01/20/18 13:49 25 MG Vital Signs/I&O 01/20/18 01/20/18 13:20 14:17 Temp 99.4 99.4 Pulse 85 85 Resp 18 18 B/P (MAP) 126/68 (87) 126/68 (87) Pulse Ox 95 95 O2 Delivery Room Air Blood Pressure Mean: 87 Progress Progress Note : Progress Note Treatment options were discussed with patient including IV medications versus IM medications. 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 Since her headache has been ongoing for 3 days, a dose of prednisone was also given to help reduce risk of rebound. Departure Impression Primary Impression: Migraine headache Qualified Codes: G43.109 - Migraine with aura, not intractable, without status migrainosus Additional Impression: Nausea Disposition: 01 HOME, SELF-CARE Condition: Improved Departure-Patient Inst. Decision time for Depature: 13:51 Referrals: DINORA CARRION MD (PCP/Family) Primary Care Physician Patient Instructions: Migraine Headache (DC) Add. Discharge Instructions: Stay well-hydrated. You may take ibuprofen up to 6 or milligrams every 6 hours as needed for pain. Add Tylenol (acetaminophen) up to 1000 mg every 6 hours as needed for additional pain relief. Use promethazine (Phenergan) as prescribed for nausea. Return home and rest in a quiet, calm, dark environment as soon as possible while your medications are still in effect. Return to care or contact your doctor if not improving or if symptoms worsen. All discharge instructions reviewed with patient and/or family. Voiced understanding. Scripts Promethazine HCl (Promethazine Tablet) 25 Mg Tablet 25 MG PO Q6H PRN for NAUSEA/VOMITING, #10 TAB Prov: ANNIA YAÑEZ MD 01/20/18 ANNIA YAÑEZ MD Jan 20, 2018 13:50
[2018-01-20] MEDS ORDERED: PROM25TA14 PO (13:52)
[2018-01-20] MEDS ORDERED: predniSONE 20 MG TAB PO ONE (14:00)
[2018-01-20 14:17] VITALS: BP 126/68
== END 2018-01-20 14:17 | disposition home or self-care (01) ==
LOC: EDUNIT# 12:56 → ER 12:57
DX: G43.909 Migraine, unspecified, not intractable, without status migrainosus (principal); R11.0 Nausea; F41.9 Anxiety disorder, unspecified; J45.909 Unspecified asthma, uncomplicated; E78.00 Pure hypercholesterolemia, unspecified; Z79.51 Long term (current) use of inhaled steroids; Z98.51 Tubal ligation status; Z82.49 Family history of ischemic heart disease and other diseases of the circulatory system
CPT/HCPCS: 96372; 99284

== ENCOUNTER 2019-05-05 18:15 | Emergency (ER) | payer BC, OTHER ==
[~2019-05-05] VITALS: Ht 160 cm; Wt 117.5 kg
[~2019-05-05 18:15] MED LIST changes: +PROM25TA14 PO
[2019-05-05 18:22] VITALS: BP 142/79
--- NOTE | 2019-05-05 18:31 | ED Cough/URI ---
General Chief Complaint: Cough/Cold/Flu Symptoms Stated Complaint: COUGH,FEVER,SORE THROAT Source: patient Exam Limitations: no limitations History of Present Illness Date Seen by Provider: May 05, 2019 Time Seen by Provider: 18:26 Initial Comments To ER with reports of a one-month history of cough fever or sore throat. Fever to a maximum of 99.1 she necessarily tested positive for the flu, then she had strep throat, and she Thrush. She was diagnosed 2 days ago with bronchitis. She was given antibiotics for that but her symptoms are not better. Her cough is nonproductive. Timing/Duration: just prior to arrival Severity/Quality: moderate Associated Symptoms: cough Allergies and Home Medications Allergies Coded Allergies: No Known Drug Allergies (Verified , 04/11/08) Home Medications Albuterol Sulfate 6.7 Gm Hfa.aer.ad, 2 PUFF IH Q6H PRN for SHORTNESS OF BREATH, (Reported) Ibuprofen 600 Mg Tablet, 600 MG PO Q6H Prescribed by: DINORA CARRION on 10/20/16 0801 Vit/Iron Fumarate/FA 1 Each Tablet, 1 EACH PO DAILY, (Reported) Promethazine HCl 25 Mg Tablet, 25 MG PO Q6H PRN for NAUSEA/VOMITING Prescribed by: ANNIA ALEXANDER on 01/20/18 1352 Patient Home Medication List Home Medication List Reviewed: Yes Review of Systems Review of Systems Constitutional: see HPI EENTM: see HPI Respiratory: see HPI Cardiovascular: no symptoms reported Genitourinary: no symptoms reported Musculoskeletal: no symptoms reported Skin: no symptoms reported Psychiatric/Neurological: No Symptoms Reported Hematologic/Lymphatic: No Symptoms Reported Past Ltfxhak-Unppud-Vrlpfs Hx Patient Social History Recent Foreign Travel: No Contact w/Someone Who Travel: No Recent Hopitalizations: No Immunizations Up To Date Tetanus Booster (TDap): Unknown PED Vaccines UTD: Yes Seasonal Allergies Seasonal Allergies: Yes Past Medical History Surgeries: Yes (DENTAL AT THE AGE OF 6) Tubal Ligation Respiratory: Yes Asthma Currently Using CPAP: No Currently Using BIPAP: No Cardiac: Yes High Cholesterol Neurological: Yes Headaches /Migraines Reproductive Disorders: No Female Reproductive Disorders: Denies Genitourinary: No Gastrointestinal: No Musculoskeletal: Yes Scoliosis Endocrine: No HEENT: No Cancer: No Psychosocial: Yes Anxiety Integumentary: No Blood Disorders: No Adverse Reaction/Blood Tranf: No Family Medical History Diabetes mellitus 19 MOTHER FH: testicular cancer 19 FATHER Hypercholesterolemia 19 MOTHER Hypertension 19 MOTHER No Pertinent Family Hx Physical Exam Capillary Refill : Height: 5'3.00" Weight: 230lbs. 6.0oz. [id number]; 42.1 BMI Method:Stated General Appearance: WD/WN, no apparent distress Eyes: Bilateral Eye Normal Inspection, Bilateral Eye PERRL, Bilateral Eye EOMI HEENT: PERRL/EOMI, normal ENT inspection Respiratory: chest non-tender, lungs clear, normal breath sounds, no respiratory distress, no accessory muscle use Gastrointestinal: normal bowel sounds, non tender, soft Extremities: normal range of motion, non-tender Neurologic/Psychiatric: alert, normal mood/affect, oriented x 3 Skin: normal color, warm/dry Progress/Results/Core Measures Suspected Sepsis SIRS Temperature: Pulse: Respiratory Rate: Blood Pressure / Mean: Results/Orders My Orders Orders - LOUIE BOSTON APRN Chest Pa/Lat (2 View) (05/05/19 18:22) Vital Signs/I&O Capillary Refill : Departure Impression Primary Impression: Post-infection bronchospasm Disposition: 01 HOME, SELF-CARE Condition: Against Medical Advice Departure-Patient Inst. Decision time for Depature: 18:31 Referrals: DINORA CARRION MD (PCP/Family) Primary Care Physician Patient Instructions: Cough, Adult (DC) Add. Discharge Instructions: 1. Return to ER for any concerns 2. Follow-up with your doctor next week 3. All discharge instructions reviewed with patient and/or family. Voiced understanding. Scripts Albuterol Sulfate (PROAIR HFA) 1 Puff Puff 2 PUFF IH Q4H PRN for WHEEZING, #1 PUFF 1 PUFF = 90 MCG Prov: LOUIE BOSTON APRN 05/05/19 LOUIE BOSTON APRN May 05, 2019 18:31
[2019-05-05] MEDS ORDERED: PROM5SYR PO (18:34)
[2019-05-05] MEDS ORDERED: RT-ALBUINH IH (18:34)
--- NOTE | 2019-05-05 18:51 | Diagnostic Imaging Report ---
INDICATION: Cough, fever, sore throat for one month. EXAMINATION: PA and lateral views of the chest. FINDINGS: The heart size and vascularity are normal. Lungs are clear. There is no effusion. There is no acute bony abnormality. IMPRESSION: No acute abnormality is seen. Dictated by: Dictated on workstation # [id number]
== END 2019-05-05 18:59 | disposition home or self-care (01) ==
LOC: EDUNIT# 18:15 → ER 18:16
DX: J98.01 Acute bronchospasm (principal); Z98.51 Tubal ligation status; Z82.49 Family history of ischemic heart disease and other diseases of the circulatory system; Z80.43 Family history of malignant neoplasm of testis
CPT/HCPCS: 71046